=== PATIENT | male | born 1980 | race American Indian/Alaskan Native ===

== ENCOUNTER 2018-07-23 08:36 | Emergency (ER) | payer SELFPAY ==
[2018-07-23] MEDS ORDERED: TORADOL IM ONE (09:26)
--- NOTE | 2018-07-23 09:40 | Emergency Department Report ---
ED Chest Pain HPI - General Chief Complaint: Chest Pain Stated Complaint: CHEST PAINS Time Seen by Provider: 07/23/18 09:25 Source: patient Mode of arrival: Ambulatory Limitations: No Limitations - History of Present Illness Initial Comments: 38-year-old -[place] male presents to the emergency department with a complaint of a few days of some left lateral sharp chest/chest wall pains. The pains worsen with certain movements of his body. He denies any shortness of breath. He denies any fever, nausea, vomiting or diaphoresis. He has not taken anything for his symptoms prior to presentation. He is a former smoker. No recent travel, immobility, or sick contacts at home. He does not have a primary care physician. He denies any illicit drug use. - Related Data Previous Rx's Medication Instructions Recorded Last Taken Type Ibuprofen [Motrin 800 MG tab] 800 mg PO Q8HR PRN #20 tablet 07/23/18 Unknown Rx Allergies Allergy/AdvReac Type Severity Reaction Status Date / Time No Known Allergies Allergy Unverified 07/23/18 08:39 Heart Score - HEART Score History: Slightly suspicious EKG: Normal Age: < 45 Risk factors: 1-2 risk factors Troponin: < normal limit HEART Score: 1 - Critical Actions Critical Actions: 0-3 pts:0.9-1.7%risk of adverse cardiac event.Candidate for discharge ED Review of Systems ROS: Stated complaint: CHEST PAINS Other details as noted in HPI Constitutional: denies: chills, fever Eyes: denies: eye pain, vision change ENT: denies: ear pain, throat pain Respiratory: denies: cough, shortness of breath Cardiovascular: chest pain. denies: palpitations Gastrointestinal: denies: abdominal pain, vomiting Genitourinary: denies: urgency, dysuria Musculoskeletal: denies: back pain, arthralgia Skin: denies: rash, lesions Neurological: denies: headache, weakness ED Past Medical Hx - Past Medical History Previous Medical History?: No - Surgical History Past Surgical History?: No - Social History Smoking Status: Never Smoker Substance Use Type: None - Medications Home Medications: Home Medications Medication Instructions Recorded Confirmed Last Taken Type Ibuprofen [Motrin 800 MG tab] 800 mg PO Q8HR PRN #20 tablet 07/23/18 Unknown Rx ED Physical Exam - General Limitations: No Limitations - Other Other exam information: GENERAL: The patient is well-developed well-nourished. HENT: Normocephalic. Atraumatic. Patient has moist mucous membranes. EYES: Extraocular motions are intact. NECK: Supple. Trachea is midline. CHEST/LUNGS: Clear to auscultation. There is no respiratory distress noted. HEART/CARDIOVASCULAR: Regular. There is no tachycardia. There is no murmur. ABDOMEN: Abdomen is soft, nontender. Patient has normal bowel sounds. There is no abdominal distention. SKIN: Skin is warm and dry. NEURO: The patient is awake, alert, and oriented. The patient is cooperative. The patient has no focal neurologic deficits. The patient has normal speech. MUSCULOSKELETAL: There is no tenderness or deformity. There is no evidence of a cute injury. ED Course Vital Signs 07/23/18 07/23/18 08:42 10:15 Temperature 98.3 F 98.5 F Pulse Rate 66 63 Respiratory 16 Rate Blood Pressure 140/71 Blood Pressure 145/87 [Right] O2 Sat by Pulse 99 Oximetry MAXINE score - Maxine Score Age > 65: (0) No Aspirin use within the Past 7 Days: (0) No 3 or more CAD Risk Factors: (0) No 2 or more Angina events in past 24 hrs: (1) Yes (If pain is angina, which is low suspicion.) Known CAD with more than 50% Stenosis: (0) No Elevated Cardiac Markers: (0) No ST Deviation Greater than 0.5mm: (0) No MAXINE Score: 1 ED Medical Decision Making - Lab Data Result diagrams: 07/23/18 09:34 07/23/18 09:34 - EKG Data -: EKG Interpreted by Ak EKG shows normal: sinus rhythm, axis, intervals, QRS complexes, ST-T waves Rate: normal - EKG Data When compared to previous EKG there are: previous EKG unavailable Interpretation: normal EKG - Radiology Data Radiology results: image reviewed interpreted by me: Chest x-ray does not show any acute process. There are no pleural effusions, obvious pneumonia and there is no pneumothorax. - Medical Decision Making Patient presents with a few days of some left-sided chest/chest wall pain. The pain is sharp and worsens with certain movements of his body. EKG does not show any signs of ST elevation HI, ischemia or dysrhythmia. Chest x-ray does not show any pneumonia, pleural effusions, focal consolidation, pneumothorax, or any other acute process. Labs are unremarkable including CBC, metabolic panel and a troponin. It appears most consistent with costochondritis or chest wall/rib pain. He was given a dose of Toradol with some improvement. He is low on the heart score and MAXINE score. Patient was given a referral for primary care as we ll as cardiology. He will return to the ER with any worsening of his symptoms or any acute distress. - Differential Diagnosis costochondritis, HI, pneumonia, malignancy Critical Care Time: No Critical care attestation.: If time is entered above; I have spent that time in minutes in the direct care of this critically ill patient, excluding procedure time. ED Disposition Clinical Impression: Atypical chest pain, Rib pain on left side, Chest wall pain Disposition: TO HOME OR SELFCARE Is pt being admited?: No Condition: Stable Instructions: Chest Pain (ED), Costochondritis (ED) Additional Instructions: Please follow up with a primary care physician in the next few days. I am also giving you a referral for a local tool polishing machine operator, Dr. Gutierrez, to follow up regarding her chest pains. Return to the emergency department with any return or worsening of your symptoms, shortness of breath, or with any acute distress. Prescriptions: Ibuprofen [Motrin 800 MG tab] 800 mg PO Q8HR PRN #20 tablet PRN Reason: Pain , Severe (7-10) Referrals: NEO BAIRD MD [Staff Physician] - 3-5 Days MODESTA GUTIERREZ MD [Staff Physician] - 3-5 Days [facility] [Outside] - 3-5 Days Time of Disposition: 10:41
[2018-07-23 09:52] LABS: Hematocrit 42.1 % (35.5-45.6); Hemoglobin 14.2 gm/dl (11.8-15.2); Mean Corpuscular HGB Conc 34 % (32-34); Mean Corpuscular Volume 84 fl (84-94); Platelet Count 256 K/mm3 (140-440); Red Blood Count 5.03 M/mm3 (3.65-5.03); Red Cell Distribution Width 15.2 % (13.2-15.2)
[2018-07-23 10:14] LABS: BUN/Creatinine Ratio 10; Blood Urea Nitrogen 9 mg/dL (9-20); Calcium 9.2 mg/dL (8.4-10.2); Hemolysis Index 6
[2018-07-23 10:17] VITALS: BP 145/87
--- NOTE | 2018-07-23 10:20 | XRay Report ---
ROUTINE CHEST, TWO VIEWS: HISTORY: chest pain. The trachea, heart, mediastinal contour, lung cloud and bony thorax are unremarkable. IMPRESSION: Unremarkable chest x-ray.
[2018-07-23 10:45] LABS: Anisocytosis Few; Basophils % (Manual) 0 % (0.0-1.8); Large Platelets Rare; Platelet Estimate Consistent w Auto; Total Cells Counted 100
== END 2018-07-23 11:18 | disposition home or self-care (01) ==
LOC: ED 08:36
DX: R07.89 Other chest pain (principal); R07.81 Pleurodynia
CPT/HCPCS: 36415; 71046; 80048; 84484; 85007; 85025; 93005; 93010; 96372; 99284; J1885

== ENCOUNTER 2018-10-22 18:08 | Emergency (ER) | payer SELFPAY ==
[2018-10-22] MEDS ORDERED: NACL 0.9% 1000 ML 1,000 ML IV ONE (18:12)
[2018-10-22] MEDS ORDERED: NACL 0.9% 1000 ML 1,000 ML ONE (18:14)
[2018-10-22] MEDS ORDERED: NARCAN 2 MG/2 ML IV ONE (18:47)
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
[2018-10-22] MEDS ORDERED: ZOFRAN IV ONE (18:49)
[2018-10-22 18:59] LABS: Basophils % (Auto) 0.7 % (0.0-1.8); Eosinophils # (Auto) 0.1 K/mm3 (0.0-0.4); Eosinophils % (Auto) 2.3 % (0.0-4.3); Hematocrit 40.5 % (35.5-45.6); Hemoglobin 13.7 gm/dl (11.8-15.2); Lymphocytes # (Auto) 1.3 K/mm3 (1.2-5.4); Lymphocytes % (Auto) 26.7 % (13.4-35.0); Mean Corpuscular HGB Conc 34 % (32-34); Mean Corpuscular Volume 86 fl (84-94); Monocytes # (Auto) 0.3 K/mm3 (0.0-0.8); Monocytes % (Auto) 5.5 % (0.0-7.3); Platelet Count 223 K/mm3 (140-440); Red Blood Count 4.74 M/mm3 (3.65-5.03); Red Cell Distribution Width 15.6 % (13.2-15.2)
[2018-10-22] MEDS ORDERED: NARCAN 2 MG/2 ML 2 MG in NACL 0.9% 500 ML 500 ML IV ONE (19:00)
[2018-10-22 19:18] LABS: Alanine Aminotransferase 10 units/L (7-56); BUN/Creatinine Ratio 13; Blood Urea Nitrogen 13 mg/dL (9-20); Calcium 8.8 mg/dL (8.4-10.2); Hemolysis Index 42
[2018-10-22] MEDS ORDERED: ATIVAN IV ONE (20:37)
--- NOTE | 2018-10-22 21:15 | Cat Scan Report ---
CT head without contrast CLINICAL HISTORY: Overdose Findings a colon no previous exams available for comparison. The brain appears to demonstrate appropr iate attenuation. The ventricular system is within normal limits in size and configuration. There is no CT evidence of acute intracranial hemorrhage or significant mass effect. The there is a nasopharyn geal airway the visualized paranasal sinuses are pneumatized. All CT scans at this location are perfo rmed using the CT dose reduction for ALARA by means of automated exposure control. IMPRESSION: There is no clear CT evidence of acute intracranial process Signer Name: Scooter Ervin MD Signed: 10/22/2018 9:11 PM Workstation Name: [id number]
[2018-10-23 01:50] LABS: Bacteria,Urine 1+ /HPF (Negative); Bilirubin,Urine NEG (Negative); Blood,Urine MOD (Negative); Color,Urine Straw (Yellow); Protein,Urine <15 mg/dL mg/dL (Negative); Urobilinogen,Urine < 2.0 mg/dL (<2.0)
[2018-10-23 01:58] LABS: Benzodiazepines Screen,Urine PRESUMPTIVE NEGATIVE; Cannabinoid Screen,Urine PRESUMPTIVE NEGATIVE; Cocaine Screen,Urine PRESUMPTIVE NEGATIVE; Methadone Screen,Urine PRESUMPTIVE NEGATIVE; Opiate Screen,Urine PRESUMPTIVE NEGATIVE
[2018-10-23 02:14] LABS: Amphetamine Screen,Urine PRESUMPTIVE POSITIVE
[2018-10-23 05:19] VITALS: BP 153/94
== END 2018-10-23 05:30 | disposition home or self-care (01) ==
LOC: EEVIPCON 18:08 → ED 18:08
DX: F15.921 Other stimulant use, unspecified with intoxication delirium (principal); F12.10 Cannabis abuse, uncomplicated; F14.10 Cocaine abuse, uncomplicated; Z79.899 Other long term (current) drug therapy
CPT/HCPCS: 36415; 70450; 80053; 80307; 81001; 82550; 85025; 93005; 93010; 96361; 96374; 96375; 99285; J2060; J2310; J7030; J7040; 80320; G0480